=== PATIENT | male | born 1955 | race Two or more races ===

== ENCOUNTER 2023-10-24 09:38 | Day surgery (SDC) | payer BC ==
[~2023-10-24] VITALS: Ht 170.2 cm; Wt 72.6 kg
[~2023-10-24 09:38] MED LIST: CEFAZOLIN SOD 2 GM in D5W 50 ML IV ONE
[2023-10-24 11:00] VITALS: O2SAT 99
[2023-10-24] MEDS ORDERED: ACETAMINOPHEN I.V. 1000 MG 100 ML IV ONE (11:59)
[2023-10-24] MEDS ORDERED: METOCLOPRAMIDE HCL 10 MG/2 ML VIAL IVP PRN (12:30)
[2023-10-24] MEDS ORDERED: MEPERIDINE HCL/PF 25 MG/ML DISP.SYRIN IVP PRN (12:30)
[2023-10-24] MEDS ORDERED: MIDAZOLAM HCL 2 MG/2 ML VIAL (VERSED) IVP PRN (12:30)
[2023-10-24] MEDS ORDERED: LABETALOL 100 MG/ 20ML VIAL IVP PRN (12:30)
[2023-10-24] MEDS ORDERED: LR 1,000 ML IV SCH (12:30)
[2023-10-24] MEDS ORDERED: HYDROmorphone 1 MG/ML INJ. CARTRIDGE IVP PRN ×2 (12:30)
[2023-10-24] MEDS ORDERED: MIDAZOLAM HCL 5 MG/ML VIAL (VERSED) IV ONE (14:06)
[2023-10-24] MEDS ORDERED: ROCURONIUM BROMIDE 10 MG/ML (ZEMURON) ONE (14:06)
[2023-10-24] MEDS ORDERED: SUGAMMADEX SODIUM 200 MG/2 ML VIAL IV ONE (14:06)
[2023-10-24] MEDS ORDERED: DESFLURANE 15 MIN GAS INH ONE (14:06)
[2023-10-24] MEDS ORDERED: NS 1000 ML IV.SOLN IV ONE (14:06)
[2023-10-24] MEDS ORDERED: PROPOFOL 200MG/ 20ML VIAL (DIPRIVAN) IV ONE (14:06)
[2023-10-24] MEDS ORDERED: ONDANSETRON HCL 4 MG/2 ML VIAL ONE (14:06)
[2023-10-24] MEDS ORDERED: BUPIVACAINE /PF 0.25% 30 ML VIAL INJ ONE (14:06)
[2023-10-24] MEDS ORDERED: KETOROLAC TROMETHAMINE 30 MG VIAL ONE (14:06)
[2023-10-24] MEDS ORDERED: DEXAMETHASONE SOD PHOSPHATE 4 MG/ML VIAL ONE (14:06)
[2023-10-24] MEDS ORDERED: LR 1,000 ML IV.SOLN IV ONE (14:06)
[2023-10-24] MEDS ORDERED: fentaNYL CITRATE/PF 100 MCG/2 ML AMP ONE (14:06)
[2023-10-24] MEDS ORDERED: hydrALAZINE HCL 20 MG/ML VIAL ONE (14:46)
[2023-10-24] MEDS: hydrALAZINE HCL 20 MG/ML VIAL IVP PRN ×2 (14:53→15:10)
[2023-10-24 16:20] VITALS: BP_SYST 135; PULSE 68; RESP 20
== END 2023-10-24 16:05 | disposition home or self-care (01) ==
LOC: SDS 09:38 → SMU 09:39 → EDBD 11:00 → SDS 16:05
PROVIDERS: ATTEND Surgery
DX: K80.12 Calculus of gallbladder with acute and chronic cholecystitis without obstruction (principal); I10 Essential (primary) hypertension; K21.9 Gastro-esophageal reflux disease without esophagitis; Z88.1 Allergy status to other antibiotic agents; F17.210 Nicotine dependence, cigarettes, uncomplicated; Z79.899 Other long term (current) drug therapy
CPT/HCPCS: 47562; 87081; 88304; J3490 ×2; J0690; J1100; J0360; J1885; J2250; J2405; J2704; J3010; J7060; J7120; J7030; C1727; J0131